=== PATIENT | female | born 1990 | race African-American/Black ===

== ENCOUNTER 2017-04-01 12:04 | Observation (INO) | payer OTHER ==
[2016-03-12 05:24] VITALS: BP 111/69
[~2017-04-01] VITALS: Ht 157.5 cm; Wt 97.5 kg
[~2017-04-01 12:04] MED LIST: CIPR500T94 PO; RANI300T3 PO
[2017-04-01] MEDS: ONDANSETRON PF 4 MG/2 ML VIAL. IV PRN ×2 (13:15→17:08)
[2017-04-01] MEDS: IV RINGERS,LACTATED 1000ML 1,000 ML IV SCH ×2 (13:15→15:51)
== END 2017-04-01 19:45 | disposition home or self-care (01) ==
LOC: 3 SO LND 12:04
PROVIDERS: ADMIT Obstetrics & Gynecology; ATTEND Obstetrics & Gynecology
DX: O21.2 Late vomiting of pregnancy (principal); Z3A.31 31 weeks gestation of pregnancy
CPT/HCPCS: 96361; 96374; 96376; G0378; G0379; J2405; J7120

== ENCOUNTER 2017-07-29 17:44 | Emergency (ER) | payer OTHER | END 2017-07-29 18:19 | disposition home or self-care (01) | LOC: ER 17:44 | DX: L02.31 Cutaneous abscess of buttock (principal); M41.9 Scoliosis, unspecified; G89.29 Other chronic pain | CPT/HCPCS: 99283 ==

== ENCOUNTER 2018-05-01 23:23 | Emergency (ER) | payer OTHER ==
[~2018-05-01] VITALS: Ht 157.5 cm; Wt 93.4 kg
[~2018-05-01 23:23] MED LIST changes: +AMOX1TAB61 PO
[2018-05-02] MEDS ORDERED: DICYCLOMINE HCL 10 MG CAPSULE PO ONE (00:15)
[2018-05-02] MEDS ORDERED: ONDANSETRON PF 4 MG/2 ML VIAL. IV ONE (00:15)
[2018-05-02] MEDS ORDERED: IV NORMAL SALINE 1000ML BAG 1,000 ML IV ONE (00:15)
[2018-05-02 00:20] LABS: BILIRUBIN,URINE SMALL (NEG); CLARITY,URINE CLEAR; COLOR,URINE AMBER; NITRITE,URINE NEGATIVE (NEG); PROTEIN,URINE 30 mg/dL (NEG-TRACE)
[2018-05-02 00:21] LABS: BASO % 0 % (0-3); EOS % 0 % (0-3); HEMATOCRIT 42.9 % (36.0-47.0); HEMOGLOBIN 14.4 g/dL (12.0-15.5); LYMPH # 0.5 x10^3/uL (1.0-4.8); LYMPH % 5 % (24-48); MEAN CORPUSCULAR HEMOGLOBIN 29 pg (25-35); MEAN CORPUSCULAR HGB CONC 34 g/dL (31-37); MEAN CORPUSCULAR VOLUME 86 fL (79-100); MONO # 0.5 x10^3/uL (0.0-1.1); MONO % 5 % (0-9); NEUT # 10.2 x10^3uL (1.8-7.7); NEUT % 91 % (31-73); PLATELET COUNT 238 x10^3/uL (140-400); RED BLOOD COUNT 4.97 x10^6/uL (3.50-5.40); RED CELL DISTRIBUTION WIDTH 13.7 % (11.5-14.5); WHITE BLOOD COUNT 11.2 x10^3/uL (4.0-11.0)
[2018-05-02 00:25] LABS: BACTERIA,URINE FEW /HPF (0-FEW); SQUAMOUS EPITHELIAL CELL,UR MOD /LPF
[2018-05-02 00:26] LABS: CALCIUM 9.3 mg/dL (8.5-10.1); CREATININE 0.8 mg/dL (0.6-1.0); GFR 104.9; POTASSIUM 4.1 mmol/L (3.5-5.1)
[2018-05-02 00:32] LABS: ALBUMIN 3.7 g/dL (3.4-5.0); ALBUMIN/GLOBULIN RATIO 0.9 (1.0-1.7); TOTAL BILIRUBIN 0.7 mg/dL (0.2-1.0); TOTAL PROTEIN 7.6 g/dL (6.4-8.2)
[2018-05-02 01:00] LABS: U PREG PATIENT NEGATIVE (NEG)
[2018-05-02 01:04] LABS: % LYMPHS 4 % (24-48); % MONOS 4 % (0-10); % SEGS 92 % (35-66); PLT ESTIMATE ADEQUATE (ADEQUATE)
[2018-05-02] MEDS ORDERED: ONDA4TAB7 PO (02:17)
[2018-05-02] MEDS ORDERED: OMEP20TA8 PO (02:17)
[2018-05-02 02:30] VITALS: BP 106/63
[2018-05-02] MEDS ORDERED: fentaNYL PF VIAL 100 MCG/2 ML VIAL ONE (02:30)
[2018-05-02] MEDS ORDERED: LIDO:MAALOX 1:1 20 ML SINGLE DOSE. SWSW ONE (02:45)
[2018-05-02] MEDS ORDERED: fentaNYL PF VIAL 100 MCG/2 ML VIAL IV ONE (02:45)
--- NOTE | 2018-05-02 03:46 | PHYS DOC ---
Past Medical History Past Medical History: Other Additional Past Medical Histor: scoliosis, chronic right hip pain, chronic back pain Past Surgical History: Alcohol Use: Occasionally Drug Use: None Adult General Chief Complaint Chief Complaint: NAUSEA/VOMITING/DIARRHA HPI HPI Patient is a 28 year old female presenting with chief complaint of abdominal pain and vomiting. She says she has been vomiting all day he is mostly yellow and green and dark in color no blood no fever that she knows of she is having crampy intermittent abdominal pain that gets worse right before vomiting. She's had 2 episodes of diarrhea no fever no lower abdominal pain the pain is in the epigastric area is nonradiating no dysuria no other symptoms she has had the symptoms couple times in the past she was evaluated in the emergency room with a negative ultrasound that showed no gallbladder disease and a prior ER visit Review of Systems Review of Systems Constitutional: Denies fever or chills [] Eyes: Denies change in visual acuity, redness, or eye pain [] HENT: Denies nasal congestion or sore throat [] Respiratory: Denies cough or shortness of breath [] Musculoskeletal: Denies back pain or joint pain [] Integument: Denies rash or skin lesions [] Neurologic: Denies headache, focal weakness or sensory changes [] All other systems were reviewed and found to be within normal limits, except as documented in this note. Current Medications Current Medications Current Medications Medications (Trade) Dose Ordered Sig/Jayant Start Time Stop Time Status Last Admin Dose Admin Dicyclomine HCl (Bentyl) 20 mg 1X ONCE 05/02/18 00:15 05/02/18 00:16 DC 05/02/18 00:27 20 MG Fentanyl Citrate (Fentanyl 2ml Vial) 100 mcg STK-MED ONCE 05/02/18 02:30 05/02/18 02:31 DC Multi-Ingredient Mouthwash/Gargle (Gi Cocktail) 20 ml 1X ONCE 05/02/18 02:45 05/02/18 02:46 DC 05/02/18 02:30 20 ML Ondansetron HCl (Zofran) 4 mg 1X ONCE 05/02/18 00:15 05/02/18 00:16 DC 05/02/18 00:28 4 MG Sodium Chloride 1,000 ml @ 1,000 mls/hr 1X ONCE 05/02/18 00:15 05/02/18 01:14 DC 05/02/18 00:27 1,000 MLS/HR Allergies Allergies Allergies Coded Allergies Type Severity Reaction Last Updated Verified No Known Drug Allergies 05/25/13 No Physical Exam Physical Exam Constitutional: Well developed, well nourished, no acute distress, non-toxic appearance. [] HENT: Normocephalic, atraumatic, bilateral external ears normal, oropharynx moist, no oral exudates, nose normal. [] Eyes: PERRLA, EOMI, conjunctiva normal, no discharge. [] Neck: Normal range of motion, no tenderness, supple, no stridor. [] Pulmonary: Normal respiratory effort no increased work of breathing no obvious chest wall trauma Abdomen: , soft, epigastric tenderness, no masses, no pulsatile masses. [] Skin: Warm, dry, no erythema, no rash. [] Back: No tenderness, no CVA tenderness. [] Extremities: No tenderness, no cyanosis, no clubbing, ROM intact, no edema. [] Neurologic: Alert and oriented X 3, normal motor function, normal sensory function, no focal deficits noted. [] Psychologic: Affect normal, judgement normal, mood normal. [] Current Patient Data Vital Signs Vital Signs Date Time Temp Pulse Resp B/P (MAP) Pulse Ox O2 Delivery O2 Flow Rate FiO2 05/02/18 02:30 86 16 106/63 (77) 97 Room Air 05/01/18 23:28 99.1 99.1 Lab Values Laboratory Tests Test 05/02/18 00:10 White Blood Count 11.2 x10^3/uL (4.0-11.0) H Red Blood Count 4.97 x10^6/uL (3.50-5.40) Hemoglobin 14.4 g/dL (12.0-15.5) Hematocrit 42.9 % (36.0-47.0) Mean Corpuscular Volume 86 fL (79-100) Mean Corpuscular Hemoglobin 29 pg (25-35) Mean Corpuscular Hemoglobin Concent 34 g/dL (31-37) Red Cell Distribution Width 13.7 % (11.5-14.5) Platelet Count 238 x10^3/uL (140-400) Neutrophils (%) (Auto) 91 % (31-73) H Lymphocytes (%) (Auto) 5 % (24-48) L Monocytes (%) (Auto) 5 % (0-9) Eosinophils (%) (Auto) 0 % (0-3) Basophils (%) (Auto) 0 % (0-3) Neutrophils # (Auto) 10.2 x10^3uL (1.8-7.7) H Lymphocytes # (Auto) 0.5 x10^3/uL (1.0-4.8) L Monocytes # (Auto) 0.5 x10^3/uL (0.0-1.1) Eosinophils # (Auto) 0.0 x10^3/uL (0.0-0.7) Basophils # (Auto) 0.0 x10^3/uL (0.0-0.2) Segmented Neutrophils % 92 % (35-66) H Lymphocytes % 4 % (24-48) L Monocytes % 4 % (0-10) Platelet Estimate Adequate (ADEQUATE) Urine Collection Type Unknown Urine Color Caryn Urine Clarity Clear Urine pH 6.0 Urine Specific [place] >=1.030 Urine Protein 30 mg/dL (NEG-TRACE) Urine Glucose (UA) Negative mg/dL (NEG) Urine Ketones (Stick) 40 mg/dL (NEG) Urine Blood Moderate (NEG) Urine Nitrite Negative (NEG) Urine Bilirubin Small (NEG) Urine Urobilinogen Dipstick 1.0 mg/dL (0.2 mg/dL) Urine Leukocyte Esterase Small (NEG) Urine RBC 6-10 /HPF (0-2) Urine WBC 11-20 /HPF (0-4) Urine Squamous Epithelial Cells Mod /LPF Urine Bacteria Few /HPF (0-FEW) Urine Mucus Mod /LPF Urine Test Negative (NEG) Sodium Level 143 mmol/L (136-145) Potassium Level 4.1 mmol/L (3.5-5.1) Chloride Level 106 mmol/L (98-107) Carbon Dioxide Level 25 mmol/L (21-32) Anion Gap 12 (6-14) Blood Urea Nitrogen 15 mg/dL (7-20) Creatinine 0.8 mg/dL (0.6-1.0) Estimated GFR (Cockcroft-Gault) 104.9 BUN/Creatinine Ratio 19 (6-20) Glucose Level 113 mg/dL (70-99) H Calcium Level 9.3 mg/dL (8.5-10.1) Total Bilirubin 0.7 mg/dL (0.2-1.0) Aspartate Amino Transferase (AST) 11 U/L (15-37) L Alanine Aminotransferase (ALT) 24 U/L (14-59) Alkaline Phosphatase 73 U/L (46-116) Total Protein 7.6 g/dL (6.4-8.2) Albumin 3.7 g/dL (3.4-5.0) Albumin/Globulin Ratio 0.9 (1.0-1.7) L Lipase 50 U/L (73-393) L Laboratory Tests 05/02/18 00:10 Laboratory Tests 05/02/18 00:10 noted u/a no dysuria doubt uti. EKG EKG [] Radiology/Procedures Radiology/Procedures [] Course & Med Decision Making Course & Med Decision Making Pertinent Labs and Imaging studies reviewed. (See chart for details) []26 show filled presenting with upper abdominal pain as well as vomiting likely gastritis and/or gastroenteritis due to the presence of diarrhea. Labwork was essentially unrevealing show mild leukocytosis this could be left shift and/or the margination secondary to vomiting. Patient had no right lower quadrant tenderness on 3 different abdominal examinations in the emergency room. Instructed to come back within 12-24 hours should she have any migrating pain worsening pain and inability to take by mouth or fever. Patient did ask for something to drink prior to discharge prescription for Zofran and antacid was given patient is agreeable to the plan and was able to take by mouth prior to discharge. Dragon Disclaimer Dragon Disclaimer This electronic medical record was generated, in whole or in part, using a voice recognition dictation system. Departure Departure Impression: Primary Impression: Abdominal pain Disposition: 01 HOME, SELF-CARE Condition: STABLE Referrals: NO PCP SAMIR FISHER FORESTR[facility] CONSULTANT (PCP) Patient Instructions: Abdominal Pain, [id number] Additional Instructions: come back in 12 hours if pain is worse or moves to the lower areas. Scripts Omeprazole (OMEPRAZOLE) 20 Mg Tablet.dr 1 TAB PO DAILY, #30 TAB 0 Refills Prov: JOE COTTO MD 05/02/18 Ondansetron Hcl (ZOFRAN) 4 Mg Tablet 4 MG PO PRN TID PRN for NAUSEA/VOMITING, #15 nausea/vomiting Prov: JOE COTTO MD 05/02/18 JOE COTTO MD May 02, 2018 03:46
== END 2018-05-02 02:50 | disposition home or self-care (01) ==
LOC: ER 23:23
DX: R10.13 Epigastric pain (principal); R11.2 Nausea with vomiting, unspecified; R19.7 Diarrhea, unspecified; G89.29 Other chronic pain
CPT/HCPCS: 36415; 80053; 81001; 81025; 83690; 85007; 85025; 87086; 96361; 96374; 96375; 99283; J2405; J3010; J7030

== ENCOUNTER 2020-05-03 09:32 | Emergency (ER) | payer BC, OTHER ==
[~2020-05-03] VITALS: Ht 157.5 cm; Wt 107.0 kg
[~2020-05-03 09:32] MED LIST changes: +OMEP20TA8 PO; +ONDA4TAB7 PO
[2020-05-03] MEDS ORDERED: MORPHINE SULFATE 10 MG/ML VIAL. IV ONE ×2 (10:15→12:15)
[2020-05-03] MEDS ORDERED: IV NORMAL SALINE 1000ML BAG 1,000 ML IV ONE (10:15)
[2020-05-03] MEDS ORDERED: FAMOTIDINE 20 MG/2 ML VIAL IVP ONE (10:15)
[2020-05-03] MEDS ORDERED: ONDANSETRON PF 4 MG/2 ML VIAL. IVP ONE (10:15)
[2020-05-03 10:42] LABS: BASO % 0 % (0-3); CALCIUM 8.6 mg/dL (8.5-10.1); CREATININE 0.9 mg/dL (0.6-1.0); EOS # 0.1 x10^3/uL (0.0-0.7); EOS % 2 % (0-3); GFR 90.2; HEMATOCRIT 42.9 % (36.0-47.0); HEMOGLOBIN 14.5 g/dL (12.0-15.5); LYMPH # 1.9 x10^3/uL (1.0-4.8); LYMPH % 24 % (24-48); MEAN CORPUSCULAR HEMOGLOBIN 29 pg (25-35); MEAN CORPUSCULAR HGB CONC 34 g/dL (31-37); MEAN CORPUSCULAR VOLUME 86 fL (79-100); MONO # 0.8 x10^3/uL (0.0-1.1); MONO % 10 % (0-9); NEUT % 63 % (31-73); PLATELET COUNT 241 x10^3/uL (140-400); POTASSIUM 4.3 mmol/L (3.5-5.1); RED BLOOD COUNT 4.98 x10^6/uL (3.50-5.40); RED CELL DISTRIBUTION WIDTH 14.3 % (11.5-14.5); WHITE BLOOD COUNT 7.9 x10^3/uL (4.0-11.0)
[2020-05-03 10:44] LABS: ALBUMIN 3.4 g/dL (3.4-5.0); ALBUMIN/GLOBULIN RATIO 0.9 (1.0-1.7); MAGNESIUM 2.1 mg/dL (1.8-2.4); TOTAL BILIRUBIN 0.3 mg/dL (0.2-1.0); TOTAL PROTEIN 7.3 g/dL (6.4-8.2)
--- NOTE | 2020-05-03 10:47 | PHYS DOC ---
Past Medical History Past Medical History: Other Additional Past Medical Histor: scoliosis, chronic right hip pain, chronic back pain Past Surgical History: Smoking Status: Current Every Day Smoker Alcohol Use: Occasionally Drug Use: None General Adult EDM: Chief Complaint: ABDOMINAL PAIN HPI: HPI: Patient is a 30 year old female who presents to the ED today complaining of 8 out of 10 sharp intermittent epigastric abdominal pain radiating to the right lower quadrant that began on Friday. Patient states the pain is worse when she is laying on her back. Denies anything specifically relieving the pain. She states she tried taking ibuprofen once with no relief. Denies any vomiting but states she has been nauseated. Denies any diarrhea. Denies any chance she is , she states she has an Implanon. Denies any concerns for COVID-19. Review of Systems: Review of Systems: Constitutional: Denies fever or chills. [] Eyes: Denies change in visual acuity. [] HENT: Denies nasal congestion or sore throat. [] Respiratory: Denies cough or shortness of breath. [] Cardiovascular: Denies chest pain or edema. [] GI: Reports right upper quadrant abdominal pain, nausea, denies vomiting, bloody stools or diarrhea. [] : Denies dysuria. [] Musculoskeletal: Denies back pain or joint pain. [] Integument: Denies rash. [] Neurologic: Denies headache, focal weakness or sensory changes. [] Psychiatric: Denies depression or anxiety. [] Heart Score: Risk Factors: Risk Factors: DM, Current or recent (<one month) smoker, HTN, HLP, family history of CAD, obesity. Risk Scores: Score 0 - 3: 2.5% MACE over next 6 weeks - Discharge Home Score 4 - 6: 20.3% MACE over next 6 weeks - Admit for Clinical Observation Score 7 - 10: 72.7% MACE over next 6 weeks - Early Invasive Strategies Current Medications: Current Medications Medications (Trade) Dose Ordered Sig/Jayant Start Time Stop Time Status Last Admin Dose Admin Famotidine (Pepcid Vial) 20 mg 1X ONCE 05/03/20 10:15 05/03/20 10:16 DC Morphine Sulfate (Morphine Sulfate) 5 mg 1X ONCE 05/03/20 10:15 05/03/20 10:16 DC Ondansetron HCl (Zofran) 4 mg 1X ONCE 05/03/20 10:15 05/03/20 10:16 DC Sodium Chloride 1,000 ml @ 1,000 mls/hr 1X ONCE 05/03/20 10:15 05/03/20 11:14 Allergies: Allergies: Allergies Coded Allergies Type Severity Reaction Last Updated Verified No Known Drug Allergies 05/25/13 No Physical Exam: PE: Constitutional: Well developed, well nourished, no acute distress, non-toxic appearance. [] HENT: Normocephalic, atraumatic, bilateral external ears normal, oropharynx moist, no oral exudates, nose normal. [] Eyes: PERRLA, EOMI, conjunctiva normal, no discharge. [] Neck: Normal range of motion, no tenderness, supple, no stridor. [] Cardiovascular:Heart rate regular rhythm, no murmur [] Lungs & Thorax: Bilateral breath sounds clear to auscultation [] Abdomen: Bowel sounds normal, soft, moderate tenderness on palpation of the right upper quadrant with positive Ross sign, no right lower quadrant tenderness, negative psoas sign, negative obturator sign, negative Rovsing sign, no masses, no pulsatile masses. [] Skin: Warm, dry, no erythema, no rash. [] Back: No tenderness, no CVA tenderness. [] Extremities: No tenderness, no cyanosis, no clubbing, ROM intact, no edema. [] Neurologic: Alert and oriented X 3, normal motor function, normal sensory function, no focal deficits noted. [] Psychologic: Affect normal, judgement normal, mood normal. [] Current Patient Data: Labs: Laboratory Tests Test 05/03/20 10:10 Sodium Level 137 mmol/L (136-145) Potassium Level 4.3 mmol/L (3.5-5.1) Chloride Level 104 mmol/L (98-107) Carbon Dioxide Level 26 mmol/L (21-32) Anion Gap 7 (6-14) Blood Urea Nitrogen 18 mg/dL (7-20) Creatinine 0.9 mg/dL (0.6-1.0) Estimated GFR (Cockcroft-Gault) 90.2 BUN/Creatinine Ratio 20 (6-20) Glucose Level 96 mg/dL (70-99) Calcium Level 8.6 mg/dL (8.5-10.1) Magnesium Level Pending Total Bilirubin Pending Aspartate Amino Transferase (AST) Pending Alanine Aminotransferase (ALT) Pending Alkaline Phosphatase Pending Total Protein Pending Albumin Pending Albumin/Globulin Ratio Pending Ethyl Alcohol Level < 10 mg/dL (0-10) Laboratory Tests 05/03/20 10:10 EKG: EKG: [] Radiology/Procedures: Radiology/Procedures: []PROCEDURE: ABDOMEN LTD INDICATION : Reason: RUQ pain / Spl. Instructions: / History: COMPARISON: March 2016 TECHNIQUE: Multiple ultrasound images obtained through the abdomen in grayscale and color. FINDINGS: Liver: Echotexture within normal limits in visualized portions of liver. Gallbladder: Contracted IVC: Partially distended at level of liver. Common Bile Duct: Not dilated. Pancreas: No gross abnormality identified in visualized portions of pancreas. Right Kidney: No hydronephrosis. Echogenic region along right renal cortex is again seen posteriorly. IMPRESSION: * Gallbladder is partially contracted without common bile duct dilation. Electronically signed by: Isabel Horowitz MD (05/03/2020 11:15 AM) [id number] DICTATED and SIGNED BY: ISABEL HOROWITZ MD DATE: 05/03/20 [id number] 0 Course & Med Decision Making: Course & Med Decision Making Pertinent Labs and Imaging studies reviewed. (See chart for details) This is a 30-year-old female patient presented to the ED today with right upper quadrant abdominal pain as well as epigastric abdominal pain since Friday. Negative urine hCG, urine analysis has large amount of leukocytes though the urine appears contaminated considering her symptoms we will treat her with cephalexin. CBC, CMP, lipase with no acute findings. Right upper quadrant limited ultrasound was negative for any acute findings, gallbladder was noted to be contracted. Patient had a meal prior to coming to the ED Pain is well controlled, discharged home. Follow-up with PCP. Saad Disclaimer: Saad Disclaimer: This electronic medical record was generated, in whole or in part, using a voice recognition dictation system. Departure Departure Impression: Primary Impression: Urinary tract infection Qualified Codes: N39.0 - Urinary tract infection, site not specified Additional Impression: Abdominal pain Qualified Codes: R10.11 - Right upper quadrant pain Disposition: 01 DC HOME SELF CARE/HOMELESS Referrals: NO PCP (PCP) Follow-up with your doctor in 1 to 2 weeks Patient Instructions: Abdominal Pain, Urinary Tract Infection Additional Instructions: You were evaluated in the emergency room and noted to have urinary tract infe ction. Take the prescribed antibiotics until completed. Please follow-up with your own doctor in 1 to 2 weeks. Come back to the ED at any point symptoms worsen Scripts Ondansetron (ONDANSETRON ODT) 4 Mg Tab.rapdis 1 TAB PO PRN Q6-8HRS, #16 TAB Prov: FIDE ABARCA APRN 05/03/20 Cephalexin (CEPHALEXIN) 500 Mg Tablet 1 TAB PO BID, #14 TAB Prov: FIDE ABARCA APRN 05/03/20 FIDE ABARCA APRN May 03, 2020 10:47
--- NOTE | 2020-05-03 11:18 | RAD ---
INDICATION : Reason: RUQ pain / Spl. Instructions: / History: COMPARISON: March 2016 TECHNIQUE: Multiple ultrasound images obtained through the abdomen in grayscale and color. FINDINGS: Liver: Echotexture within normal limits in visualized portions of liver. Gallbladder: Contracted IVC: Partially distended at level of liver. Common Bile Duct: Not dilated. Pancreas: No gross abnormality identified in visualized portions of pancreas. Right Kidney: No hydronephrosis. Echogenic region along right renal cortex is again seen posteriorly. IMPRESSION: * Gallbladder is partially contracted without common bile duct dilation. Electronically signed by: Major Horowitz MD (05/03/2020 11:15 AM) [id number]
[2020-05-03 11:41] LABS: BILIRUBIN,URINE NEGATIVE (NEG); CLARITY,URINE CLOUDY; COLOR,URINE YELLOW; NITRITE,URINE NEGATIVE (NEG); PH,URINE 6.5 (<5.0-8.0); PROTEIN,URINE NEGATIVE (NEG-TRACE)
[2020-05-03 11:45] LABS: AMPHETAMINE/METHAMPHETAMINE NEG (NEG); BARBITURATES NEG (NEG); BENZODIAZEPINES NEG (NEG); CANNABINOIDS NEG (NEG); COCAINE NEG (NEG); METHADONE NEG (NEG); OPIATES NEG (NEG); PHENCYCLIDINE NEG (NEG)
[2020-05-03 12:06] LABS: BACTERIA,URINE MANY /HPF (0-FEW); WBC,URINE >40 /HPF (0-4)
[2020-05-03] MEDS ORDERED: CEPH500T PO (12:13)
[2020-05-03] MEDS ORDERED: ONDA4TAB12 PO (12:13)
[2020-05-03 12:50] VITALS: BP 104/57
== END 2020-05-03 13:07 | disposition home or self-care (01) ==
LOC: ER 09:32
DX: N39.0 Urinary tract infection, site not specified (principal); R10.11 Right upper quadrant pain; R11.0 Nausea; R10.13 Epigastric pain; M41.9 Scoliosis, unspecified; G89.29 Other chronic pain; F17.200 Nicotine dependence, unspecified, uncomplicated; Z98.890 Other specified postprocedural states
CPT/HCPCS: 36415; 76705; 80053; 80307; 81001; 83735; 85025; 87086; 96361; 96374; 96375; 96376; 99284; G0480; J2270; J2405; J3490; J7030